=== PATIENT | male | born 1935 | race Caucasian/White ===

== ENCOUNTER 2017-03-02 10:41 | Day surgery (SDC) | payer MEDICARE, BC ==
[~2017-03-02 10:41] MED LIST: ACETAMINOPHEN WITH CODEINE 1 EACH TABLET PO PRN; ONDANSETRON HCL/PF 2 MG/ML VIAL IV PRN; RINGER'S SOLUTION,LACTATED 1,000 ML IV PRN; ceFAZolin SODIUM 1 GM in DEXTROSE 5 % IN WATER 100 ML IV PRN; oxyCODONE HCL/ACETAMINOPHEN 1 TAB TABLET PO PRN
[2017-03-02] MEDS ORDERED: RINGER'S SOLUTION,LACTATED 1,000 ML IV ONE ×2 (11:30→13:35)
[2017-03-02] MEDS ORDERED: BUPIVACAINE HCL 50 ML VIAL IJ ONE ×2 (12:45)
[2017-03-02] MEDS ORDERED: POVIDONE IODINE TP ONE (12:45)
[2017-03-02] MEDS ORDERED: MUPIROCIN 22 APPL TUBE TP ONE (13:33)
[2017-03-02 14:47] VITALS: BP 125/58
[2017-03-02] MEDS ORDERED: NEOMYCIN/BACITRACIN/POLYMYXINB 15 APPL TUBE TP SCH (17:00)
== END 2017-03-02 10:42 | disposition home or self-care (01) ==
LOC: AMB 10:41
PROVIDERS: ATTEND Urology
PROC: 0VTTXZZ Resection of Prepuce, External Approach (ICD-10-PCS; principal; 2017-03-02 12:00)
DX: N47.1 Phimosis (principal); I10 Essential (primary) hypertension; E11.9 Type 2 diabetes mellitus without complications; K21.9 Gastro-esophageal reflux disease without esophagitis; E78.00 Pure hypercholesterolemia, unspecified; I25.119 Atherosclerotic heart disease of native coronary artery with unspecified angina pectoris; E66.9 Obesity, unspecified; Z68.37 Body mass index [BMI] 37.0-37.9, adult; Z87.891 Personal history of nicotine dependence

== ENCOUNTER 2017-05-04 10:36 | Day surgery (SDC) | payer MEDICARE, BC ==
[~2017-05-04 10:36] MED LIST changes: -ACETAMINOPHEN WITH CODEINE 1 EACH TABLET PO PRN; +AMPICILLIN SODIUM 1,000 MG in NORMAL SALINE 100 ML IV PRN; +GENTAMICIN SULFATE 80 MG in NORMAL SALINE 100 ML IV PRN; +NORMAL SALINE 1,000 ML IV PRN; -ONDANSETRON HCL/PF 2 MG/ML VIAL IV PRN; -RINGER'S SOLUTION,LACTATED 1,000 ML IV PRN; -ceFAZolin SODIUM 1 GM in DEXTROSE 5 % IN WATER 100 ML IV PRN; -oxyCODONE HCL/ACETAMINOPHEN 1 TAB TABLET PO PRN
[2017-05-04 11:25] LABS: Anion Gap 10.2 mmol/L (6.8-13.8); BUN/Creatinine Ratio 15.5 (9.0-21.6); Calcium * 8.9 mg/dL (7.9-10.9); Carbon Dioxide 30.9 mmol/L (24-32.6); Potassium 4.1 mmol/L (3.4-4.6)
[2017-05-04] MEDS ORDERED: ACETAMINOPHEN WITH CODEINE 1 EACH TABLET PO PRN (14:43)
[2017-05-04 15:52] VITALS: BP 124/59
== END 2017-05-04 10:37 | disposition home or self-care (01) ==
LOC: AMB 10:36
PROVIDERS: ATTEND Urology
PROC: 0VB08ZZ Excision of Prostate, Via Natural or Artificial Opening Endoscopic (ICD-10-PCS; principal; 2017-05-04)
DX: N40.1 Benign prostatic hyperplasia with lower urinary tract symptoms (principal); N13.8 Other obstructive and reflux uropathy; N41.1 Chronic prostatitis; N47.1 Phimosis; E11.9 Type 2 diabetes mellitus without complications; I10 Essential (primary) hypertension; K21.9 Gastro-esophageal reflux disease without esophagitis; I25.10 Atherosclerotic heart disease of native coronary artery without angina pectoris; E78.00 Pure hypercholesterolemia, unspecified; E66.9 Obesity, unspecified; Z68.36 Body mass index [BMI] 36.0-36.9, adult